=== PATIENT | female | born 1980 | race Caucasian/White ===

== ENCOUNTER 2018-02-21 16:52 | Emergency (ER) | payer MEDICAID ==
[~2018-02-21] VITALS: Ht 165.1 cm; Wt 114.1 kg
[2018-02-21 17:06] VITALS: BP 100/72
--- NOTE | 2018-02-21 17:10 | NUR ---
PT SENT TO LOBBY TO WAIT FOR A BED.
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
[2018-02-21] MEDS ORDERED: BACITRACIN OINT 500 UNITS/GM PKT TP ONE (18:40)
--- NOTE | 2018-02-21 18:52 | NUR ---
PT D/C BY [facility] IN STABLE CONDITION.
== END 2018-02-21 18:52 | disposition home or self-care (01) ==
LOC: MED 16:52
DX: S61.512A Laceration without foreign body of left wrist, initial encounter (principal); W26.0XXA Contact with knife, initial encounter; Y93.G1 Activity, food preparation and clean up; Y92.89 Other specified places as the place of occurrence of the external cause; Y99.8 Other external cause status
CPT/HCPCS: 90471; 90715; 99283

== ENCOUNTER 2018-09-22 09:55 | Emergency (ER) | payer MEDICAID ==
[~2018-09-22] VITALS: Ht 167.6 cm; Wt 92.1 kg
[2018-09-22 10:00] VITALS: BP 128/78
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
--- NOTE | 2018-09-22 10:23 | NUR ---
SENIOR CHEMIST REFERRAL GIVEN TO PT
--- NOTE | 2018-09-22 10:28 | NUR ---
Patient being evaluated by physician at bedside.
[2018-09-22 10:59] LABS: BASOPHILS # (AUTO) 0.1 K/uL (0.00-0.22); BASOPHILS % (AUTO) 0.6 % (0.0-2.0); EOSINOPHILS # (AUTO) 0.1 K/uL (0-0.4); HEMATOCRIT 41.7 % (36-48); HEMOGLOBIN 13.8 g/dL (12.0-16.0); LYMPHOCYTES # (AUTO) 1.9 K/uL (2.5-16.5); LYMPHOCYTES % (AUTO) 21.8 % (20.5-51.1); MEAN CORPUSCULAR HEMOGLOBIN 30 pg (27-31); MEAN CORPUSCULAR HGB CONC 33 g/dL (33-37); MEAN CORPUSCULAR VOLUME 91.3 fL (80-94); MONOCYTES # (AUTO) 0.4 K/uL (0.8-1.0); MONOCYTES % (AUTO) 4.8 % (1.7-9.3); NEUTROPHILS # (AUTO) 6.3 K/uL (1.8-7.7); NEUTROPHILS % (AUTO) 71.8 % (42.2-75.2); PLATELET COUNT (AUTO) 263 K/uL (140-450); RED BLOOD CELL COUNT(AUTO) 4.57 MIL/uL (4.20-5.40); RED CELL DISTRIBUTION WIDTH 12.5 % (11.6-13.7); WHITE BLOOD COUNT (AUTO) 8.8 K/uL (4.8-10.8)
[2018-09-22 11:11] LABS: APPEARANCE,URINE CLEAR (CLEAR); BILIRUBIN,URINE NEGATIVE (NEGATIVE); BLOOD, URINE NEGATIVE (NEGATIVE); COLOR,URINE YELLOW (YELLOW); LEUKOCYTE ESTERASE ,URINE NEGATIVE (NEGATIVE); NITRITE, URINE NEGATIVE (NEGATIVE); PH,URINE 5.5 (5.0-9.0); UGLUCOSE NEGATIVE (NEGATIVE)
--- NOTE | 2018-09-22 11:15 | NUR ---
ULTRASOUND AT BEDSIDE
[2018-09-22 12:53] VITALS: BP 121/72
--- NOTE | 2018-09-22 12:53 | NUR ---
Patient discharged with v/s stable. Written and verbal after care instructions given and explained. Patient verbalized understanding. Ambulatory with steady gait. All questions addressed prior to discharge. Advised to follow up with PMD.
== END 2018-09-22 12:53 | disposition home or self-care (01) ==
LOC: MED 09:55
DX: O26.891 Other specified pregnancy related conditions, first trimester (principal); R10.31 Right lower quadrant pain; R10.32 Left lower quadrant pain; Z3A.01 Less than 8 weeks gestation of pregnancy
CPT/HCPCS: 36415; 76817; 81003; 81025; 84702; 85025; 99284; Q0092; 81002

== ENCOUNTER 2018-10-23 00:05 | Emergency (ER) | payer MEDICAID ==
[~2018-10-23] VITALS: Ht 167.6 cm; Wt 113.4 kg
[2018-10-23 00:08] VITALS: BP 104/71
--- NOTE | 2018-10-23 00:14 | NUR ---
Pt ambulated to bed 9 with vss. Providing urine.
--- NOTE | 2018-10-23 00:37 | NUR ---
Dr. Zapata evaluating patient at bedside.
[2018-10-23 00:51] LABS: APPEARANCE,URINE HAZY (CLEAR); BILIRUBIN,URINE NEGATIVE (NEGATIVE); BLOOD, URINE 3+ (NEGATIVE); COLOR,URINE YELLOW (YELLOW); LEUKOCYTE ESTERASE ,URINE TRACE (NEGATIVE); NITRITE, URINE NEGATIVE (NEGATIVE); UGLUCOSE NEGATIVE (NEGATIVE)
[2018-10-23 00:52] LABS: BASOPHILS % (AUTO) 0.4 % (0.0-2.0); EOSINOPHILS # (AUTO) 0.2 K/uL (0-0.4); EOSINOPHILS % (AUTO) 1.3 % (0.0-4.0); HEMATOCRIT 41.1 % (36-48); HEMOGLOBIN 13.3 g/dL (12.0-16.0); LYMPHOCYTES # (AUTO) 2.5 K/uL (2.5-16.5); LYMPHOCYTES % (AUTO) 20.9 % (20.5-51.1); MEAN CORPUSCULAR HEMOGLOBIN 30 pg (27-31); MEAN CORPUSCULAR HGB CONC 32 g/dL (33-37); MEAN CORPUSCULAR VOLUME 91.4 fL (80-94); MONOCYTES # (AUTO) 0.6 K/uL (0.8-1.0); MONOCYTES % (AUTO) 4.8 % (1.7-9.3); NEUTROPHILS # (AUTO) 8.5 K/uL (1.8-7.7); NEUTROPHILS % (AUTO) 72.6 % (42.2-75.2); PLATELET COUNT (AUTO) 293 K/uL (140-450); RED BLOOD CELL COUNT(AUTO) 4.49 MIL/uL (4.20-5.40); RED CELL DISTRIBUTION WIDTH 12.3 % (11.6-13.7); WHITE BLOOD COUNT (AUTO) 11.8 K/uL (4.8-10.8)
[2018-10-23 01:00] LABS: ANION GAP 11.2 (8-16); CREATININE 0.6 mg/dL (0.6-1.3); POTASSIUM 4.2 mmol/L (3.5-5.1)
[2018-10-23 01:21] LABS: RBC,URINE 11-20 (MOD) /HPF (0-5)
[2018-10-23 02:58] VITALS: BP 110/75
== END 2018-10-23 02:55 | disposition home or self-care (01) ==
LOC: MED 00:05
DX: O20.0 Threatened abortion (principal); O23.41 Unspecified infection of urinary tract in pregnancy, first trimester; Z3A.09 9 weeks gestation of pregnancy
CPT/HCPCS: 36415; 76801; 80048; 81001; 81025; 84702; 85025; 86900; 86901; 87086; 99284; Q0092

== ENCOUNTER 2018-10-27 23:30 | Inpatient (IN) | payer MEDICAID ==
[~2018-10-27] VITALS: Ht 167.6 cm; Wt 108.9 kg
[2018-10-27 23:49] VITALS: BP 108/71
[2018-10-28] MEDS ORDERED: NACL 0.9% 1,000 ML IV ONE (00:35)
[2018-10-28] MEDS ORDERED: ACETAMINOPHEN 325 MG TAB PO ONE (00:40)
[2018-10-28 01:16] LABS: BASOPHILS % (AUTO) 0.3 % (0.0-2.0); EOSINOPHILS # (AUTO) 0.2 K/uL (0-0.4); EOSINOPHILS % (AUTO) 1.6 % (0.0-4.0); HEMATOCRIT 39.9 % (36-48); HEMOGLOBIN 12.8 g/dL (12.0-16.0); LYMPHOCYTES # (AUTO) 2.2 K/uL (2.5-16.5); LYMPHOCYTES % (AUTO) 18.5 % (20.5-51.1); MEAN CORPUSCULAR HEMOGLOBIN 30 pg (27-31); MEAN CORPUSCULAR HGB CONC 32 g/dL (33-37); MEAN CORPUSCULAR VOLUME 92.3 fL (80-94); MONOCYTES # (AUTO) 0.6 K/uL (0.8-1.0); MONOCYTES % (AUTO) 5.1 % (1.7-9.3); NEUTROPHILS % (AUTO) 74.5 % (42.2-75.2); PLATELET COUNT (AUTO) 278 K/uL (140-450); RED BLOOD CELL COUNT(AUTO) 4.33 MIL/uL (4.20-5.40); RED CELL DISTRIBUTION WIDTH 12.7 % (11.6-13.7); WHITE BLOOD COUNT (AUTO) 12.1 K/uL (4.8-10.8)
[2018-10-28 01:38] LABS: ANION GAP 9.7 (8-16); CARBON DIOXIDE 28.9 mmol/L (21-32); CREATININE 0.7 mg/dL (0.6-1.3); POTASSIUM 4.6 mmol/L (3.5-5.1)
[2018-10-28 02:07] LABS: APPEARANCE,URINE CLEAR (CLEAR); BILIRUBIN,URINE NEGATIVE (NEGATIVE); BLOOD, URINE 3+ (NEGATIVE); COLOR,URINE BROWN (YELLOW); LEUKOCYTE ESTERASE ,URINE TRACE (NEGATIVE); NITRITE, URINE NEGATIVE (NEGATIVE); UGLUCOSE NEGATIVE (NEGATIVE)
[2018-10-28 02:08] LABS: RBC,URINE TOO NUMEROUS TO COUN /HPF (0-5)
[2018-10-28] MEDS ORDERED: MORPHINE SULFATE 4 MG/ML SYR IVP ONE (02:10)
[2018-10-28] MEDS ORDERED: OXYTOCIN IV ONE (04:30)
[2018-10-28] MEDS ORDERED: NACL 0.9% IV ONE (04:30)
[2018-10-28] MEDS ORDERED: OXYTOCIN 10 UNITS/ML VIAL ONE (04:40)
[2018-10-28] MEDS ORDERED: ACETAMINOPHEN 325 MG TAB PO PRN (05:10)
[2018-10-28] MEDS ORDERED: DOCUSATE SODIUM 100 MG GELCAP PO PRN (05:10)
[2018-10-28] MEDS ORDERED: HYDROcodone/APAP 7.5/325 MG 1 TAB PO PRN (05:10)
[2018-10-28] MEDS ORDERED: ONDANSETRON 4 MG/2 ML VIAL IM/IVP PRN (05:10)
[2018-10-28] MEDS ORDERED: DEXT 5% /NACL 0.9% 1,000 ML IV SCH (05:15)
[2018-10-28 05:45] VITALS: BP 92/52
[2018-10-28 06:17] LABS: PROTHROMBIN TIME 9.5 secs (10.8-13.4)
[2018-10-28] MEDS: NACL 0.9% 1,000 ML IV SCH ×2 (06:35→19:03)
[2018-10-28 07:26] LABS: FREE T4 (FREE THYROXINE) 0.94 ng/dL (0.76-1.46); MAGNESIUM 2.2 mg/dL (1.8-2.4); PHOSPHORUS 3.9 mg/dL (2.5-4.9); THYROID STIMULATING HORMONE 3.17 uIU/mL (0.34-3.74)
[2018-10-28 08:00] VITALS: BP 98/60
[2018-10-28] MEDS ORDERED: PNV11TAB3 PO (09:16)
[2018-10-28] MEDS: LACTOBACILLUS RHAMNOSUS GG 1 EACH CAP PO SCH (10:09)
[2018-10-28 13:33] LABS: BASOPHILS # (AUTO) 0.1 K/uL (0.00-0.22); BASOPHILS % (AUTO) 0.7 % (0.0-2.0); EOSINOPHILS # (AUTO) 0.2 K/uL (0-0.4); EOSINOPHILS % (AUTO) 1.4 % (0.0-4.0); HEMATOCRIT 31.9 % (36-48); HEMOGLOBIN 10.5 g/dL (12.0-16.0); LYMPHOCYTES # (AUTO) 2.4 K/uL (2.5-16.5); MEAN CORPUSCULAR HEMOGLOBIN 30 pg (27-31); MEAN CORPUSCULAR HGB CONC 33 g/dL (33-37); MEAN CORPUSCULAR VOLUME 92.3 fL (80-94); MONOCYTES # (AUTO) 0.6 K/uL (0.8-1.0); MONOCYTES % (AUTO) 5.4 % (1.7-9.3); NEUTROPHILS # (AUTO) 7.4 K/uL (1.8-7.7); NEUTROPHILS % (AUTO) 69.5 % (42.2-75.2); PLATELET COUNT (AUTO) 235 K/uL (140-450); RED BLOOD CELL COUNT(AUTO) 3.46 MIL/uL (4.20-5.40); RED CELL DISTRIBUTION WIDTH 12.4 % (11.6-13.7); WHITE BLOOD COUNT (AUTO) 10.6 K/uL (4.8-10.8)
[2018-10-28 16:00] VITALS: BP 103/62
[2018-10-28 17:18] LABS: BASOPHILS # (AUTO) 0.1 K/uL (0.00-0.22); BASOPHILS % (AUTO) 0.6 % (0.0-2.0); EOSINOPHILS # (AUTO) 0.2 K/uL (0-0.4); EOSINOPHILS % (AUTO) 1.8 % (0.0-4.0); HEMATOCRIT 31.8 % (36-48); HEMOGLOBIN 10.2 g/dL (12.0-16.0); LYMPHOCYTES # (AUTO) 2.4 K/uL (2.5-16.5); LYMPHOCYTES % (AUTO) 20.8 % (20.5-51.1); MEAN CORPUSCULAR HEMOGLOBIN 30 pg (27-31); MEAN CORPUSCULAR HGB CONC 32 g/dL (33-37); MEAN CORPUSCULAR VOLUME 91.8 fL (80-94); MONOCYTES # (AUTO) 0.6 K/uL (0.8-1.0); MONOCYTES % (AUTO) 5.5 % (1.7-9.3); NEUTROPHILS # (AUTO) 8.1 K/uL (1.8-7.7); NEUTROPHILS % (AUTO) 71.3 % (42.2-75.2); PLATELET COUNT (AUTO) 238 K/uL (140-450); RED BLOOD CELL COUNT(AUTO) 3.46 MIL/uL (4.20-5.40); RED CELL DISTRIBUTION WIDTH 12.3 % (11.6-13.7); WHITE BLOOD COUNT (AUTO) 11.3 K/uL (4.8-10.8)
[2018-10-28 17:36] LABS: BARBITURATE, URINE NEG. ng/ml (NEG <=200); BENZODIAZEPINE, URINE NEG. ng/mL (NEG <=200); CANNABINOID, URINE NEG. ng/mL (NEG <=50); COCAINE, URINE NEG. ng/mL (NEG <=300); OPIATE, URINE POS. ng/mL (NEG <=2000); PHENCYCLIDINE SCREEN,URINE NEG. ng/mL (NEG <=25)
[2018-10-28 20:00] VITALS: BP 90/46
[2018-10-29] VITALS: BP 89/46
[2018-10-29 06:11] LABS: T4 (THYROXINE) 7.3 ug/dL (4.5-12.0)
[2018-10-29] MEDS: NACL 0.9% 1,000 ML IV SCH (06:16)
[2018-10-29 08:00] VITALS: BP 108/70
[2018-10-29 08:03] LABS: BASOPHILS # (AUTO) 0.1 K/uL (0.00-0.22); BASOPHILS % (AUTO) 0.6 % (0.0-2.0); EOSINOPHILS # (AUTO) 0.2 K/uL (0-0.4); EOSINOPHILS % (AUTO) 2.2 % (0.0-4.0); HEMATOCRIT 30.7 % (36-48); HEMOGLOBIN 9.9 g/dL (12.0-16.0); LYMPHOCYTES # (AUTO) 1.9 K/uL (2.5-16.5); MEAN CORPUSCULAR HEMOGLOBIN 30 pg (27-31); MEAN CORPUSCULAR HGB CONC 32 g/dL (33-37); MONOCYTES # (AUTO) 0.5 K/uL (0.8-1.0); MONOCYTES % (AUTO) 5.7 % (1.7-9.3); NEUTROPHILS # (AUTO) 5.6 K/uL (1.8-7.7); NEUTROPHILS % (AUTO) 68.5 % (42.2-75.2); PLATELET COUNT (AUTO) 217 K/uL (140-450); RED BLOOD CELL COUNT(AUTO) 3.34 MIL/uL (4.20-5.40); RED CELL DISTRIBUTION WIDTH 12.3 % (11.6-13.7); WHITE BLOOD COUNT (AUTO) 8.2 K/uL (4.8-10.8)
[2018-10-29] MEDS: LACTOBACILLUS RHAMNOSUS GG 1 EACH CAP PO SCH (08:57)
[2018-10-29] MEDS ORDERED: MULTIVIT/MIN/CA/FE/FA 1 TAB PO SCH (09:00)
[2018-10-29 09:22] LABS: ANION GAP 12.3 (8-16); CARBON DIOXIDE 24.3 mmol/L (21-32); POTASSIUM 3.6 mmol/L (3.5-5.1)
[2018-10-29 09:23] LABS: CREATININE 0.6 mg/dL (0.6-1.3)
[2018-10-29] MEDS ORDERED: [UNRECOGNIZED DRUG - CODE] PO (09:24)
[2018-10-29 09:48] LABS: MAGNESIUM 1.9 mg/dL (1.8-2.4); PHOSPHORUS 3.3 mg/dL (2.5-4.9)
== END 2018-10-29 12:00 | disposition home or self-care (01) | DRG 564 ==
LOC: MED 23:30 → MTU 10-28 05:06
PROVIDERS: ADMIT General Practice; ATTEND General Practice
DX: O03.37 Sepsis following incomplete spontaneous abortion (principal); A41.9 Sepsis, unspecified organism; E87.8 Other disorders of electrolyte and fluid balance, not elsewhere classified; G62.9 Polyneuropathy, unspecified; O03.33 Metabolic disorder following incomplete spontaneous abortion; E66.9 Obesity, unspecified; E86.0 Dehydration; O03.4 Incomplete spontaneous abortion without complication; R80.9 Proteinuria, unspecified; O03.6 Delayed or excessive hemorrhage following complete or unspecified spontaneous abortion; R73.9 Hyperglycemia, unspecified; O03.38 Urinary tract infection following incomplete spontaneous abortion; D64.9 Anemia, unspecified; R31.9 Hematuria, unspecified; Z71.3 Dietary counseling and surveillance; Z3A.11 11 weeks gestation of pregnancy; Z90.49 Acquired absence of other specified parts of digestive tract; Z83.3 Family history of diabetes mellitus; Z82.5 Family history of asthma and other chronic lower respiratory diseases
CPT/HCPCS: 36415; 76815; 80048; 80305; 81001; 82150; 83036; 83605; 83690; 83735; 83880; 84100; 84436; 84439; 84443; 84479; 84484; 84702; 85025; 85610; 85730; 86900; 86901; 87040; 87081; 87086; 93005; 93970; 96361; 96365; 96375; 99285; J0696; J2270; J2590; J7030; J7060; Q0092

== ENCOUNTER 2019-07-09 22:53 | Emergency (ER) | payer MEDICAID ==
[~2019-07-09] VITALS: Ht 162.6 cm; Wt 114.3 kg
[~2019-07-09 22:53] MED LIST: PNV11TAB3 PO; [UNRECOGNIZED DRUG - CODE] PO
[2019-07-09 23:01] VITALS: BP 127/68
--- NOTE | 2019-07-09 23:05 | NUR ---
PT AMBULATED TO LOBBY.
--- NOTE | 2019-07-10 02:09 | NUR ---
PT AMBULATED TO BED 02
--- NOTE | 2019-07-10 02:10 | NUR ---
Benjamin lombardo in [facility] - 07/10/19 at 0210 by ELISHA X RAY AT BEDSIDE
--- NOTE | 2019-07-10 02:11 | NUR ---
39/F PRESENTED TO ED REQUESTING ULTRASOUND AND EVALUATION. NO PAIN REPORTED. PT 13 WEEKS . STATES SHE WAS LAYING DOWN AND WATERY LIQUID SATURATED UNDERWEAR WHEN STANDING UP. PT STATES SHE IS UNCERTAIN IF LIQUID IS VAGINAL OR URINE. NO BLOOD REPORTED. NO N/V/D. VSS. WILL CONTINUE TO MONITOR.
--- NOTE | 2019-07-10 04:35 | NUR ---
ULTRASOUND BEING PERFORMED AT THIS TIME
[2019-07-10 04:59] LABS: APPEARANCE,URINE HAZY (CLEAR); BILIRUBIN,URINE NEGATIVE (NEGATIVE); BLOOD, URINE NEGATIVE (NEGATIVE); COLOR,URINE YELLOW (YELLOW); LEUKOCYTE ESTERASE ,URINE NEGATIVE (NEGATIVE); NITRITE, URINE NEGATIVE (NEGATIVE); UGLUCOSE NEGATIVE (NEGATIVE)
--- NOTE | 2019-07-10 05:06 | NUR ---
LAB AT BEDSIDE
[2019-07-10 05:11] LABS: RBC,URINE NONE SEEN /HPF (0-5); WBC,URINE NONE SEEN /HPF (0-5)
[2019-07-10 05:12] LABS: CALCIUM OXALATE CRYSTALS,UR >100 /HPF (None Seen)
--- NOTE | 2019-07-10 06:35 | NUR ---
SLEEPING IN BED NO SIGNS OF DISTRESS NOTED. DAUGHTER AT BEDSIDE. PT IN STABLE CONDITION.
[2019-07-10 07:16] VITALS: BP 127/68
[2019-07-12 07:15] LABS: CHLAMYDIA TRACHOMATIS AMP DNA Negative (Negative)
== END 2019-07-10 07:16 | disposition home or self-care (01) ==
LOC: MED 22:53
DX: O23.41 Unspecified infection of urinary tract in pregnancy, first trimester (principal); R82.71 Bacteriuria; Z3A.13 13 weeks gestation of pregnancy; Z79.899 Other long term (current) drug therapy
CPT/HCPCS: 36415; 76801; 81001; 81025; 84702; 87491; 99284; Q0092

== ENCOUNTER 2019-11-13 10:09 | Observation (INO) | payer MEDICAID ==
[~2019-11-13] VITALS: Ht 165.1 cm; Wt 114.8 kg
[2019-11-13 11:00] VITALS: BP 115/58
== END 2019-11-13 11:30 | disposition home or self-care (01) ==
LOC: MLD 10:09
PROVIDERS: ADMIT Obstetrics & Gynecology; ATTEND Obstetrics & Gynecology
DX: O36.8130 Decreased fetal movements, third trimester, not applicable or unspecified (principal); Z3A.30 30 weeks gestation of pregnancy
CPT/HCPCS: 81000; G0378

== ENCOUNTER 2020-01-06 15:01 | Inpatient (IN) | payer MEDICAID ==
[~2020-01-06] VITALS: Ht 165.1 cm; Wt 120.2 kg
[~2020-01-06 15:01] MED LIST changes: +PRENATAL TAB; -[UNRECOGNIZED DRUG - CODE] PO
[2020-01-06] MEDS ORDERED: CARBOPROST 250 MCG/ML AMP IM PRN (16:35)
[2020-01-06] MEDS ORDERED: METHYLERGONOVINE 0.2 MG/ML AMP IM PRN (16:35)
[2020-01-06] MEDS: LACTATED RINGERS 1,000 ML IV SCH (17:03)
[2020-01-06 17:11] LABS: BASOPHILS # (AUTO) 0.1 K/uL (0.00-0.22); BASOPHILS % (AUTO) 0.9 % (0.0-2.0); EOSINOPHILS # (AUTO) 0.1 K/uL (0-0.4); EOSINOPHILS % (AUTO) 0.7 % (0.0-4.0); HEMATOCRIT 36.7 % (36-48); HEMOGLOBIN 12.2 g/dL (12.0-16.0); LYMPHOCYTES # (AUTO) 1.4 K/uL (2.5-16.5); LYMPHOCYTES % (AUTO) 13.7 % (20.5-51.1); MEAN CORPUSCULAR HEMOGLOBIN 31 pg (27-31); MEAN CORPUSCULAR HGB CONC 33 g/dL (33-37); MONOCYTES # (AUTO) 0.7 K/uL (0.8-1.0); MONOCYTES % (AUTO) 6.9 % (1.7-9.3); NEUTROPHILS # (AUTO) 8.1 K/uL (1.8-7.7); NEUTROPHILS % (AUTO) 77.8 % (42.2-75.2); PLATELET COUNT (AUTO) 291 K/uL (140-450); RED BLOOD CELL COUNT(AUTO) 3.99 MIL/uL (4.20-5.40); RED CELL DISTRIBUTION WIDTH 12.9 % (11.6-13.7); WHITE BLOOD COUNT (AUTO) 10.4 K/uL (4.8-10.8)
[2020-01-06 17:20] LABS: APPEARANCE,URINE CLOUDY (CLEAR); BILIRUBIN,URINE 2+ (NEGATIVE); BLOOD, URINE NEGATIVE (NEGATIVE); LEUKOCYTE ESTERASE ,URINE TRACE (NEGATIVE); NITRITE, URINE NEGATIVE (NEGATIVE); UGLUCOSE NEGATIVE (NEGATIVE)
[2020-01-06 17:47] LABS: COLOR,URINE AMBER (YELLOW)
[2020-01-06 17:48] LABS: RBC,URINE NONE SEEN /HPF (0-5); WBC,URINE 0-5 /HPF (0-5)
[2020-01-06 20:25] VITALS: BP 112/67
[2020-01-06] MEDS ORDERED: OXYTOCIN 20 UNITS in LACTATED RINGERS 1,000 ML IV SCH (21:50)
[2020-01-06] MEDS ORDERED: NALBUPHINE 10 MG/ML AMP IVP PRN (21:50)
[2020-01-07] MEDS: LACTATED RINGERS 1,000 ML IV SCH ×2 (02:03→11:25)
[2020-01-07] MEDS ORDERED: OXYTOCIN 20 UNITS/LR PREMIX 1,000 ML IV ONE (02:27)
--- NOTE | 2020-01-07 06:33 | NUR ---
PATIENT HAS BEEN SCREENED AND CATEGORIZED LOW NUTRITION RISK. PATIENT WILL BE SEEN WITHIN 7 DAYS OF ADMISSION. 01/14/20 WILLIAM MALIK MS, RDN
[2020-01-07] MEDS ORDERED: OXYTOCIN 10 UNITS/ML VIAL ONE ×2 (07:50→12:55)
[2020-01-07] MEDS ORDERED: PROMETHAZINE 25 MG/ML VIAL IM PRN (08:20)
[2020-01-07] MEDS ORDERED: LIDOCAINE MPF 1% 10 MG/ML VIAL INJ SCH (08:20)
[2020-01-07] MEDS ORDERED: MORPHINE SULFATE 10 MG/ML VIAL ONE (08:22)
[2020-01-07] MEDS ORDERED: PROMETHAZINE 25 MG/ML VIAL ONE (08:23)
[2020-01-07] MEDS ORDERED: MORPHINE SULFATE 10 MG/ML VIAL IVP PRN (08:25)
[2020-01-07] MEDS ORDERED: OXYTOCIN 20 UNITS in LACTATED RINGERS 1,000 ML IV SCH (13:12)
[2020-01-07] MEDS ORDERED: ACETAMINOPHEN 325 MG TAB PO PRN (13:15)
[2020-01-07] MEDS ORDERED: MEASLES, MUMPS, AND RUBELLA 1 VIAL SQVAC PRN (13:15)
[2020-01-07] MEDS: IBUPROFEN 600 MG TAB PO PRN (20:00)
[2020-01-08] MEDS: IBUPROFEN 600 MG TAB PO PRN ×2 (06:09→17:51)
[2020-01-08 08:41] LABS: BASOPHILS # (AUTO) 0.1 K/uL (0.00-0.22); BASOPHILS % (AUTO) 0.7 % (0.0-2.0); EOSINOPHILS # (AUTO) 0.1 K/uL (0-0.4); HEMATOCRIT 32.9 % (36-48); HEMOGLOBIN 10.8 g/dL (12.0-16.0); LYMPHOCYTES # (AUTO) 1.6 K/uL (2.5-16.5); LYMPHOCYTES % (AUTO) 13.3 % (20.5-51.1); MEAN CORPUSCULAR HEMOGLOBIN 30 pg (27-31); MEAN CORPUSCULAR HGB CONC 33 g/dL (33-37); MEAN CORPUSCULAR VOLUME 92.3 fL (80-94); MONOCYTES # (AUTO) 0.7 K/uL (0.8-1.0); MONOCYTES % (AUTO) 5.7 % (1.7-9.3); NEUTROPHILS # (AUTO) 9.3 K/uL (1.8-7.7); NEUTROPHILS % (AUTO) 79.3 % (42.2-75.2); PLATELET COUNT (AUTO) 272 K/uL (140-450); RED BLOOD CELL COUNT(AUTO) 3.57 MIL/uL (4.20-5.40); RED CELL DISTRIBUTION WIDTH 12.9 % (11.6-13.7); WHITE BLOOD COUNT (AUTO) 11.7 K/uL (4.8-10.8)
[2020-01-08] MEDS: DOCUSATE SODIUM 100 MG GELCAP PO PRN (10:07)
[2020-01-08] MEDS: BISACODYL 5 MG TABEC PO PRN (10:07)
[2020-01-09] MEDS: IBUPROFEN 600 MG TAB PO PRN (07:15)
[2020-01-09] MEDS: BISACODYL 5 MG TABEC PO PRN (08:00)
[2020-01-09] MEDS: DOCUSATE SODIUM 100 MG GELCAP PO PRN (08:00)
[2020-01-09] MEDS ORDERED: EPIDURAL KEYS MC ONE (11:16)
== END 2020-01-09 15:00 | disposition home or self-care (01) | DRG 560 ==
LOC: MFCC 15:01 → MLD 01-07 07:35 → MFCC 01-07 15:14
PROVIDERS: ADMIT Obstetrics & Gynecology; ATTEND Obstetrics & Gynecology
PROC: 10E0XZZ Delivery of Products of Conception, External Approach (ICD-10-PCS; principal; 2020-01-07)
PROC: 10907ZC Drainage of Amniotic Fluid, Therapeutic from Products of Conception, Via Natural or Artificial Opening (ICD-10-PCS; 2020-01-07)
PROC: 3E0234Z Introduction of Serum, Toxoid and Vaccine into Muscle, Percutaneous Approach (ICD-10-PCS; 2020-01-07)
DX: O69.1XX0 Labor and delivery complicated by cord around neck, with compression, not applicable or unspecified (principal); Z23 Encounter for immunization; Z37.0 Single live birth; Z3A.39 39 weeks gestation of pregnancy
CPT/HCPCS: 36415; 51702; 59409; 76815; 81001; 85025; 86592; 86886; 86900; 86901; 87086; 90715; J2270; J2550; J2590; J7120; Q0092

== ENCOUNTER 2021-04-23 15:00 | Emergency (ER) | payer MEDICAID ==
[~2021-04-23] VITALS: Ht 163.8 cm; Wt 114.3 kg
[2021-04-23 15:09] VITALS: BP 130/102
[2021-04-23] MEDS ORDERED: HYDROcodone/APAP 7.5/325 MG 1 TAB PO ONE (15:30)
[2021-04-23] MEDS ORDERED: cefTRIAXone 1,000 MG in LIDOCAINE MPF 1% 2.1 ML IM ONE (15:30)
[2021-04-23] MEDS ORDERED: KETOROLAC 30 MG/ML VIAL IM ONE (15:30)
[2021-04-23] MEDS ORDERED: LIDOCAINE MPF 1% 5 ML ONE (15:52)
[2021-04-23] MEDS ORDERED: cefTRIAXone 1,000 MG VIAL ONE (15:52)
[2021-04-23] MEDS ORDERED: CEPH-588 PO (16:01)
[2021-04-23] MEDS ORDERED: IBUP-2213 PO (16:01)
[2021-04-23] MEDS ORDERED: ACET-8386 PO (16:01)
[2021-04-23] MEDS ORDERED: SULF-59 PO (16:01)
[2021-04-23 16:21] VITALS: BP 130/102
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
--- NOTE | 2021-04-23 16:22 | NUR ---
Patient discharged with v/s stable. Written and verbal after care instructions given and explained. Patient alert, oriented and verbalized understanding of instructions. Ambulatory with to car. All questions addressed prior to discharge. ID band removed. Patient advised to follow up with PMD. Rx of SULFAMETHOXAZOLE, CEPHALEXIN, IBUPROFEN given. Patient educated on indication of medication including possible reaction and side effects. Opportunity to ask questions provided and answered.
== END 2021-04-23 16:22 | disposition home or self-care (01) ==
LOC: MED 15:00
DX: L03.116 Cellulitis of left lower limb (principal); R03.0 Elevated blood-pressure reading, without diagnosis of hypertension; Z79.899 Other long term (current) drug therapy
CPT/HCPCS: 96372; 99284; J0696; J1885; J2001

== ENCOUNTER 2022-02-19 10:35 | Emergency (ER) | payer MEDICAID ==
[~2022-02-19] VITALS: Ht 165.1 cm; Wt 118.8 kg
[~2022-02-19 10:35] MED LIST changes: +ACET-8386 PO; +CEPH-588 PO; +IBUP-2213 PO; +SULF-59 PO
[2022-02-19 10:41] VITALS: BP 108/73
--- NOTE | 2022-02-19 10:44 | NUR ---
PT AMBULATED TO BED 8
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
--- NOTE | 2022-02-19 11:27 | NUR ---
DR. HUBBARD BEDSIDE EVALUATING PT
[2022-02-19] MEDS ORDERED: PROCHLORPERAZINE 5 MG TAB PO ONE (11:30)
--- NOTE | 2022-02-19 11:37 | NUR ---
PT TAKEN TO CT SCAN VIA [facility]
[2022-02-19] MEDS ORDERED: PROC-66 PO (13:05)
[2022-02-19] MEDS ORDERED: IBUP-2213 PO (13:05)
[2022-02-19] MEDS ORDERED: DIPH25TA53 PO (13:05)
[2022-02-19] MEDS ORDERED: KETOROLAC 30 MG/ML VIAL IM ONE (13:05)
[2022-02-19 13:24] VITALS: BP 117/62
--- NOTE | 2022-02-19 13:25 | NUR ---
Patient discharged with v/s stable. Written and verbal after care instructions given and explained. Patient alert, oriented and verbalized understanding of instructions. Ambulatory with steady gait. All questions addressed prior to discharge. ID band removed. Patient advised to follow up with PMD. Rx of BENADRYL, IBUPROFEN, COMPAZINE given. Patient educated on indication of medication including possible reaction and side effects. Opportunity to ask questions provided and answered.
== END 2022-02-19 13:25 | disposition home or self-care (01) ==
LOC: MED 10:35
DX: R51.9 Headache, unspecified (principal); Z79.899 Other long term (current) drug therapy; Z79.1 Long term (current) use of non-steroidal anti-inflammatories (NSAID); Z79.891 Long term (current) use of opiate analgesic; Z79.2 Long term (current) use of antibiotics
CPT/HCPCS: 70450; 81025; 96372; 99284; J1885; Q0163; Q0164

== ENCOUNTER 2023-08-25 11:39 | Emergency (ER) | payer MEDICAID ==
[~2023-08-25] VITALS: Ht 167.6 cm; Wt 72.6 kg
[~2023-08-25 11:39] MED LIST changes: -ACET-8386 PO; +ACET-8905 PO; +DIPH25TA53 PO; +PROC-66 PO
[2023-08-25 11:53] VITALS: BP 122/70; PULSE 93; RESP 18; TEMP 98.6; O2SAT 98
[2023-08-25] MEDS ORDERED: LIDOCAINE MPF 1% 10 MG/ML VIAL INJ ONE (13:20)
[2023-08-25] MEDS ORDERED: IBUP-2213 PO (14:11)
[2023-08-25] MEDS ORDERED: CEPH-588 PO (14:11)
[2023-08-25 14:30] VITALS: BP 123/65; PULSE 78; RESP 18; TEMP 98; O2SAT 98
== END 2023-08-25 14:31 | disposition home or self-care (01) ==
LOC: MED 11:39
DX: L03.032 Cellulitis of left toe (principal); Z79.899 Other long term (current) drug therapy
CPT/HCPCS: 96372; 99283; J2001